=== PATIENT | male | born 1995 | race Caucasian/White ===

== ENCOUNTER 2016-11-06 22:06 | Emergency (ER) | payer OTHER, BC ==
[~2016-11-06] VITALS: Ht 188 cm; Wt 154.5 kg
[2016-11-06 22:20] VITALS: TEMP 98.1; Ht 188 cm; Wt 154.5 kg
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
[2016-11-06] MEDS ORDERED: LIDOCAINE VISCOUS 2% Oral Soln 15ml UD PO ONE (22:45)
[2016-11-06] MEDS ORDERED: HYDROMORPHONE 2mg/ml INJECTION IM ONE (22:45)
[2016-11-07] MEDS ORDERED: HYDR-4246 PO (00:34)
[2016-11-07] MEDS ORDERED: NEOMYCIN/POLYM/BACITR OINT PACKET TOP ONE (00:34)
[2016-11-07 00:45] VITALS: BP 142/89; PULSE 112; RESP 18; O2SAT 98
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
== END 2016-11-07 00:45 | disposition home or self-care (01) ==
LOC: ED 22:06
DX: S60.512A Abrasion of left hand, initial encounter (principal); S60.511A Abrasion of right hand, initial encounter; S60.812A Abrasion of left wrist, initial encounter; S60.811A Abrasion of right wrist, initial encounter; S50.312A Abrasion of left elbow, initial encounter; S50.311A Abrasion of right elbow, initial encounter; S40.812A Abrasion of left upper arm, initial encounter; S40.811A Abrasion of right upper arm, initial encounter; S80.212A Abrasion, left knee, initial encounter; S80.211A Abrasion, right knee, initial encounter; S90.812A Abrasion, left foot, initial encounter; S90.811A Abrasion, right foot, initial encounter; S30.810A Abrasion of lower back and pelvis, initial encounter; V28.0XXA Motorcycle driver injured in noncollision transport accident in nontraffic accident, initial encounter; Y93.89 Activity, other specified; Y92.414 Local residential or business street as the place of occurrence of the external cause; Y99.8 Other external cause status
CPT/HCPCS: 73100; 96372; 99283; J1170